=== PATIENT | male | born 1980 | race Two or more races ===

== ENCOUNTER 2020-11-24 15:26 | Emergency (ER) | payer SELFPAY ==
[~2020-11-24] VITALS: Ht 180.3 cm; Wt 127.0 kg
[2020-11-24 15:40] VITALS: BP 127/94
== END 2020-11-24 15:46 | disposition left against medical advice (07) ==
LOC: EDBD 15:26 → ER 15:33
DX: S50.312A Abrasion of left elbow, initial encounter (principal); S00.211A Abrasion of right eyelid and periocular area, initial encounter; S80.212A Abrasion, left knee, initial encounter; S80.211A Abrasion, right knee, initial encounter; Z53.21 Procedure and treatment not carried out due to patient leaving prior to being seen by health care provider; W19.XXXA Unspecified fall, initial encounter; Y93.89 Activity, other specified; Y92.89 Other specified places as the place of occurrence of the external cause; Y99.8 Other external cause status

== ENCOUNTER 2023-10-11 07:45 | Emergency (ER) | payer BC, OTHER ==
[~2023-10-11] VITALS: Ht 182.9 cm; Wt 116.8 kg
[2023-10-11 08:10] VITALS: BP 148/86; PULSE 104; RESP 18; TEMP 98.8; O2SAT 95
[2023-10-11] MEDS ORDERED: NAP500T PO (08:31)
[2023-10-11] MEDS ORDERED: CYCL-837 PO (08:31)
== END 2023-10-11 09:18 | disposition home or self-care (01) ==
LOC: ER 07:45
DX: S30.0XXA Contusion of lower back and pelvis, initial encounter (principal); M25.511 Pain in right shoulder; M25.561 Pain in right knee; I10 Essential (primary) hypertension; Z79.899 Other long term (current) drug therapy; V98.8XXA Other specified transport accidents, initial encounter; Y93.89 Activity, other specified; Y92.89 Other specified places as the place of occurrence of the external cause; Y99.8 Other external cause status
CPT/HCPCS: 73080

== ENCOUNTER 2024-01-17 00:22 | Emergency (ER) | payer BC ==
[~2024-01-17] VITALS: Ht 182.9 cm; Wt 111.5 kg
[~2024-01-17 00:22] MED LIST: CYCL-837 PO; NAP500T PO
[2024-01-17 00:29] VITALS: BP 165/100; PULSE 107; RESP 16; O2SAT 97
== END 2024-01-18 01:32 | disposition left against medical advice (07) ==
LOC: EDBD 00:22 → ER 00:22
DX: R53.1 Weakness (principal); I10 Essential (primary) hypertension; Z53.21 Procedure and treatment not carried out due to patient leaving prior to being seen by health care provider

== ENCOUNTER 2024-08-25 19:37 | Emergency (ER) | payer SELFPAY ==
[~2024-08-25] VITALS: Ht 182.9 cm; Wt 113.0 kg
[2024-08-25 19:37] VITALS: BP 159/94; RESP 16; TEMP 98.6; O2SAT 97
[2024-08-25 19:41] VITALS: PULSE 112
--- NOTE | 2024-08-25 19:50 | ECG ---
[facility] Test Date: 2024-08-25 Test Time: 19:41:12 Pat Name: ANGELA العراقي Department: ER Room: Gender: M [employer]her: ER : 1980 Requested By: EMERGENCY EMERGENCY Order Number: [id number] Reading MD: Julio Faith Measurements Intervals [place] Rate: 112 P: 41 [place]: 172 QRS: 134 QRSD: 91 T: -24 QT: 327 QTc: 447 Interpretive Statements Sinus tachycardia Inferior infarct, age indeterminate Minimal ST elevation, anterolateral leads Electronically Signed On 08-26-2024 19:22:11 PDT by Julio Faith Please click the below link to view image of tracing.
== END 2024-08-25 20:04 | disposition left against medical advice (07) ==
LOC: ER 19:37 → EDBD 19:37 → ER 20:04
DX: R55 Syncope and collapse (principal); M25.512 Pain in left shoulder; M54.6 Pain in thoracic spine; Z53.21 Procedure and treatment not carried out due to patient leaving prior to being seen by health care provider
CPT/HCPCS: 93005

== ENCOUNTER 2024-08-26 15:55 | Emergency (ER) | payer SELFPAY ==
[~2024-08-26] VITALS: Ht 182.9 cm; Wt 113.0 kg
--- NOTE | 2024-08-26 16:20 | ED.PDOC ---
History of Present Illness HPI Comments 44-year-old male brought in by EMS and presents with a chief complaint of palpitations and SOB at rest s/p huffing aerosol duster cans. Per EMS, patient was found slumped over his steering wheel [facility] lot with a large amount of aerosol cans in patients car. Patient endorses inhaling cans in an attempt to get high. Denies SI/HI, auditory or visual hallucinations. Patient is now reporting "my heart is beating fast and I feel like I can't breathe". Patient is tachycardic per EKG upon arrival. Denies any chest pain at this time. Chief Complaint: Overdose Time Seen by MD: 16:10 Primary Care Provider: NONE Reviewed Notes: Medications, Allergies Allergies: Coded Allergies: NO KNOWN ALLERGIES (Unverified , 11/24/20) Home Meds Active Scripts Naproxen (NAPROSYN TABLET) 500 Mg Tb, 1 TAB PO BIDPC for 10 Days, #20 TAB 0 Refills Prov:CADEN CHINO NP 10/11/23 Cyclobenzaprine Hcl (Cyclobenzaprine Hcl) 5 Mg Tab, 1 TAB PO QHSP PRN for 30 Days, #30 TAB 0 Refills Prov:CADEN CHINO DRUG WORKER 10/11/23 Information Source: Patient Mode of Arrival: EMS Severity: Moderate Timing: Minutes Duration: Since onset Prehospital treatment: None Past Medical History PAST MEDICAL HISTORY: HTN Surgical History: Denies all surgeries Family History Family History: Reviewed,noncontributory to illness Social History Smoker: Non-Smoker Alcohol: Denies ETOH Use Drugs: Denies Drug Use Lives In: Home Constitutional: denies: chills, diaphoresis, fatigue, fever, malaise, sweats, weakness, others EENTM: denies: blurred vision, double vision, ear bleeding, ear discharge, ear drainage, ear pain, ear ringing, eye pain, eye redness, hearing loss, mouth pain, mouth swelling, nasal discharge, nose bleeding, nose congestion, nose pain, photophobia, tearing, throat pain, throat swelling, voice changes, others Respiratory: reports: SOB at rest; denies: cough, hemoptysis, orthopnea, shortness of breath, SOB with excertion, stridor, wheezing, others Cardiovascular: reports: palpitations; denies: chest pain, dizzy spells, diaphoresis, Dyspnea on exertion, edema, irregular heart beat, left arm pain, lightheadedness, PND, syncope, others Gastrointestinal: denies: abdomen distended, abdominal pain, blood streaked bowels, constipated, diarrhea, dysphagia, difficulty swallowing, hematemesis, melena, nausea, poor appetite, poor fluid intake, rectal bleeding, rectal pain, vomiting, others Genitourinary: denies: burning, dysuria, flank pain, frequency, hematuria, inco ntinence, penile discharge, penile sore, pain, testicle pain, testicle swelling, urgency, others Neurological: denies: dizziness, fainting, headache, left sided numbness, left sided weakness, numbness, paresthesia, pre-existing deficit, right sided numbness, right sided weakness, seizure, speech problems, tingling, tremors, weakness, others Musculoskeletal: denies: back pain, gout, joint pain, joint swelling, muscle pain, muscle stiffness, neck pain, others Integumetry: denies: bruises, change in color, change in hair/nails, dryness, laceration, lesions, lumps, rash, wounds, others Allergic/Immunocompromised: denies: Difficulty Healing, Frequent Infections, Hives, Itching, others Hematologic/Lymphatic: denies: anemia, blood clots, easy bleeding, easy bruising, swollen glands, others Endocrine: denies: excessive hunger, excessive sweating, excessive thirst, excessive urination, flushing, intolerance to cold, intolerance to heat, unexplained weight gain, unexplained weight loss, others Psychiatric: denies: anxiety, bipolar disorder, depression, hopeless, panic disorder, schizophrenia, sleepless, suicidal, others All Other Systems: Reviewed and Negative Physical Exam General Appearance: No Apparent Distress HEENT: PERRL/EOMI Neck: Full Range of Motion, Normal Inspection Respiratory: Lungs Clear, No Accessory Muscle Use, No Respiratory Distress, Normal Breath Sounds Cardiovascular: No Edema, No JVD, Tachycardia Breast Exam: Deferred Gastrointestinal: Non Tender, Soft Genitalia: Deferred Pelvic: Deferred Rectal: Deferred Extremities: Normal inspection, Normal range of motion, Non-tender, No pedal edema Neurologic: Alert (Oriented x4), Normal Affect, Normal Mood, Other (Ambulatory without difficulty. No gross focal deficit.) Cerebellar Function: NOT DONE Reflexes: NOT DONE Skin: Dry, Normal Color, Warm Lymphatic: NOT DONE Was a procedure done? Was a procedure done?: No EKG EKG : Comments Sinus tach, rate 121, normal [place] and QRS intervals, QTC 460, normal axis, possible old inferior infarct, nonspecific T changes. Differential Dx Considerations may include: Inhalant intoxication, other drug/alcohol intoxication, arrhythmia, PE, among others X-Ray, Labs, Meds, VS Vital Signs Date Time Temp Pulse Resp B/P (MAP) Pulse Ox O2 Delivery O2 Flow Rate FiO2 08/26/24 17:40 103 13 92 Room Air* 0 21 08/26/24 17:21 98.6 103 13 128/83 (98) 92 98.6 08/26/24 16:30 112 08/26/24 16:04 98.0 125 16 171/97 (121) 98 98.0 08/26/24 15:55 121 Lab Test 08/26/24 19:28 08/26/24 18:06 08/26/24 16:25 Range/Units Urine Color Colorless Yellow Urine Clarity Clear Clear Urine pH 5.5 5.0-9.0 Urine Specific [place] 1.007 1.001-1.035 Urine Protein Negative Negative Urine Ketones 2+ H Negative Urine Blood Negative Negative /uL Urine Nitrite Negative Negative Urine Bilirubin Negative Negative Urine Urobilinogen Normal Negative mg/dL Urine Leukocyte Esterase Negative Negative /uL Urine RBC <1 0 - 3 /hpf Urine Microscopic WBC < 1 0-3 /HPF Urine Squamous Epithelial Cells None seen <5 /hpf Urine Bacteria None seen None Seen /hpf Urine Glucose 4+ H Normal mg/dL Urine Opiates Screen Neg NEGATIVE Urine Fentanyl Screen Neg NEGATIVE Urine Barbiturates Screen Neg NEGATIVE Urine Phencyclidine Screen Neg NEGATIVE Urine Amphetamines Screen Neg NEGATIVE Urine Benzodiazepines Screen Neg NEGATIVE Urine Cocaine Screen Neg NEGATIVE Urine Cannabinoids Screen Neg NEGATIVE Troponin I High Sensitivity < 3 L < 3 L </=54 ng/L White Blood Count 5.7 4.4-10.8 10^3/uL Red Blood Count 5.26 4.5-5.90 10^6/uL Hemoglobin 16.4 13.5-17.5 g/dL Hematocrit 49.6 41.0-53.0 % Mean Corpuscular Volume 94.4 80.0-100.0 fL Mean Corpuscular Hemoglobin 31.2 28.0-32.0 pg Mean Corpuscular Hemoglobin Concent 33.0 32.0-36.0 g/dL Red Cell Distribution Width 14.4 H 11.8-14.3 % Platelet Count 229 140-450 10^3/uL Mean Platelet Volume 8.3 6.9-10.8 fL Neutrophils (%) (Auto) 55.6 37.0-80.0 % Lymphocytes (%) (Auto) 35.9 10.0-50.0 % Monocytes (%) (Auto) 6.6 0.0-12.0 % Eosinophils (%) (Auto) 1.0 0.0-7.0 % Basophils (%) (Auto) 0.9 0.0-2.0 % Neutrophils # (Auto) 3.2 1.6-8.6 10 ^3/uL Lymphocytes # (Auto) 2.1 0.4-5.4 10 ^3/uL Monocytes # (Auto) 0.4 0-1.3 10 ^3/uL Eosinophils # (Auto) 0.1 0-0.8 10 ^3/uL Basophils # (Auto) 0 0-0.2 10 ^3/uL Nucleated Red Blood Cells 0.1 % Sodium Level 138 136-145 mmol/L Potassium Level 3.5 3.5-5.1 mmol/L Chloride Level 105 98-107 mmol/L Carbon Dioxide Level 21 20-31 mmol/L Anion Gap 12 5-15 Blood Urea Nitrogen 7 L 9-23 mg/dL Creatinine 1.10 0.700-1.30 mg/dL Glomerular Filtration Rate Calc 84 >90 mL/min BUN/Creatinine Ratio 6.4 L 10.0-20.0 Serum Glucose 275 H 74-106 mg/dL Calcium Level 9.7 8.7-10.4 mg/dL Total Bilirubin 0.6 0.2-1.0 mg/dL Aspartate Amino Transferase (AST) 17 13-40 U/L Alanine Aminotransferase (ALT) 33 7-40 U/L Alkaline Phosphatase 118 H 46-116 U/L B-Type Natriuretic Peptide 1.79 0-100 pg/mL Total Protein 7.8 5.7-8.2 g/dL Albumin 4.9 H 3.2-4.8 g/dL Plasma/Serum Blood Alcohol < 3.0 <10 mg/dL Current Medications Medications (Trade) Dose Ordered Sig/Driss Route Start Time Stop Time Status Last Admin Sodium Chloride 1,000 ml @ 1,000 mls/hr Q1H ONCE IV 08/26/24 16:00 08/26/24 16:59 DC 08/26/24 17:38 Sodium Chloride 1,000 ml @ 1,000 mls/hr Q1H ONCE IV 08/26/24 16:30 08/26/24 17:29 DC 08/26/24 18:16 X-Ray, Labs, Meds, VS Comment 44-year-old male with a history of hypertension brought in by EMS after being found slumped over in his car after huffing aerosol duster cans Vitals remarkable for heart rate 121 exam remarkable for tachycardia Rhythm strip independently interpreted by me: Sinus tach, rate 121, no ectopy. CBC, CMP, BNP, 2 serial troponins, alcohol and urine drug screen unremarkable for any abnormality of acute significance Patient treated with the following in the ED: 2 L 0.9 normal saline IV bolus Poison control was contacted and it was recommended that the patient undergo cardiac workup and be observed for 4 hours for any arrhythmias. On re-evaluation at 9:00 p.m., patient had a heart rate of 103, oxygen saturation 92% on room air. Other vitals were stable. Plan was for chest x-ray, however the patient stated he no longer wanted to stay. He was alert, oriented x4 and capable of making informed decisions. He was advised regarding the risks including worsening palpitations, cardiac arrhythmia, permanent disability or . He expressed understanding and insisted on signing out against medical advice. Time of 1ST Reevaluation: 16:40 Reevaluation 1ST: Unchanged Time of 2ND Reevaluation: 21:09 Reevaluation 2ND: AMA Patient Education/Counseling: Diagnosis, Need For Follow Up Family Education/Counseling: No Family Present Departure 1 Departure Time of Disposition: 21:09 Impression: Primary Impression: Inhalant abuse Additional Impression: Tachycardia Disposition: LEFT AGAINST MEDICAL ADVICE Condition: Fair Discharged With: Self Critical Care Note Critical Care Time?: No Stability Stability form required: No Heart Score Heart Score: Heart Score Response (Comments) Value History N/A 0 EKG N/A 0 Age N/A 0 Risk Factors N/A 0 Troponin N/A 0 Total 0 I personally scribed for CHUCKIE CAMERON MD ([email or web address]) on 08/26/24 at 16:20. Electronically submitted by Ronal Boyd ([email or web address]). CHUCKIE CAMERON MD Aug 26, 2024 16:20
[2024-08-26 16:40] LABS: Basophils # (auto) 0 10 ^3/uL (0-0.2); Basophils % (auto) 0.9 % (0.0-2.0); Eosinophils # (auto) 0.1 10 ^3/uL (0-0.8); Hematocrit 49.6 % (41.0-53.0); Hemoglobin 16.4 g/dL (13.5-17.5); Lymphocytes # (auto) 2.1 10 ^3/uL (0.4-5.4); Lymphocytes % (auto) 35.9 % (10.0-50.0); Mean Corpuscular Hemoglobin 31.2 pg (28.0-32.0); Mean Corpuscular Volume 94.4 fL (80.0-100.0); Monocytes # (auto) 0.4 10 ^3/uL (0-1.3); Monocytes % (auto) 6.6 % (0.0-12.0); Neutrophils # (auto) 3.2 10 ^3/uL (1.6-8.6); Neutrophils % (auto) 55.6 % (37.0-80.0); Nucleated Red Blood Cells % 0.1 %; Platelet Count (auto) 229 10^3/uL (140-450); Red Blood Cells 5.26 10^6/uL (4.5-5.90); Red Cell Distribution Width 14.4 % (11.8-14.3); White Blood Cell 5.7 10^3/uL (4.4-10.8)
[2024-08-26 17:00] LABS: Alanine Aminotransferase 33 U/L (7-40); Albumin 4.9 g/dL (3.2-4.8); Alkaline Phosphatase 118 U/L (46-116); Anion Gap 12 (5-15); Aspartate Aminotransferase 17 U/L (13-40); BUN/Creatinine Ratio 6.4 (10.0-20.0); Bilirubin, Total 0.6 mg/dL (0.2-1.0); Blood Alcohol < 3.0 mg/dL (<10); Blood Urea Nitrogen 7 mg/dL (9-23); Calcium 9.7 mg/dL (8.7-10.4); Carbon Dioxide 21 mmol/L (20-31); Chloride 105 mmol/L (98-107); Glucose 275 mg/dL (74-106); Potassium 3.5 mmol/L (3.5-5.1); Sodium 138 mmol/L (136-145); Total Protein 7.8 g/dL (5.7-8.2)
[2024-08-26] MEDS: SODIUM CHLORIDE 0.9% 1,000 ML IV ONE ×2 (17:38→18:16)
[2024-08-26 17:40] VITALS: PULSE 103; RESP 13; O2SAT 92
[2024-08-26 19:29] LABS: Urine Bacteria None Seen /hpf (None Seen)
[2024-08-26 19:30] VITALS: BP 138/92; PULSE 99; RESP 19; TEMP 98.1; O2SAT 100
[2024-08-26 19:45] LABS: Urine Blood Negative /uL (Negative); Urine Clarity Clear (Clear); Urine Color Colorless (Yellow); Urine Protein, UAD Negative (Negative); Urine Specific Gravity 1.007 (1.001-1.035); Urine Squamous Epithelial Cell None Seen /hpf (<5); Urine Urobilinogen Normal (Negative); Urine WBC < 1 /HPF (0-3); Urine pH 5.5 (5.0-9.0)
[2024-08-26 19:50] LABS: Amphetamine Screen, Urine Neg (NEGATIVE); Barbiturate Scree,Urine Neg (NEGATIVE); Benzodiazephine Screen, Urine Neg (NEGATIVE); Cannabinoid Screen, Urine Neg (NEGATIVE); Cocaine Screen, Urine Neg (NEGATIVE); Opiate Scree,Urine Neg (NEGATIVE); Phencyclidine Screen, Urine Neg (NEGATIVE)
--- NOTE | 2024-08-27 20:13 | ECG ---
[facility] Test Date: 2024-08-26 Test Time: 15:53:33 Pat Name: ANGELA العراقي Department: ER Room: Gender: M Cash Application Representative: JUANITA : 1980 Requested By: CHUCKIE CASANOVA Order Number: [id number] Reading MD: Julio Faith Measurements Intervals [place] Rate: 121 P: 41 [place]: 157 QRS: 147 QRSD: 94 T: -25 QT: 324 QTc: 460 Interpretive Statements Sinus tachycardia Probable RVH w/ secondary repol abnormality Inferior infarct, age indeterminate Borderline ST elevation, anterolateral leads Electronically Signed On 08-27-2024 20:43:04 PDT by Julio Faith Please click the below link to view image of tracing.
== END 2024-08-26 22:37 | disposition left against medical advice (07) ==
LOC: EDBD 15:55 → ER 15:55
DX: F18.10 Inhalant abuse, uncomplicated (principal); R00.0 Tachycardia, unspecified; R06.02 Shortness of breath; I10 Essential (primary) hypertension; Z79.899 Other long term (current) drug therapy
CPT/HCPCS: 36415; 80053; 80307; 80320; 81001; 83880; 84484; 85025; 93005; 96360; 96361; 99285; J7030